=== PATIENT | female | born 1950 | race Caucasian/White ===

== ENCOUNTER 2019-07-18 06:21 | Emergency (ER) | payer OTHER ==
[2019-07-18] MEDS ORDERED: Morphine 4 MG/ML VIAL ONE (07:10)
[2019-07-18] MEDS ORDERED: Ketorolac Tromethamine 30 MG/ML VIAL ONE (07:10)
[2019-07-18] MEDS ORDERED: Lidocaine 1% 20 ML MDV ONE (07:31)
[2019-07-18] MEDS ORDERED: Bupivacaine 0.5% 10 ML VIAL ONE (07:31)
--- NOTE | 2019-07-18 08:09 | RAD ---
3 VIEWS LEFT HAND: Date: 07/18/19 HISTORY: Fall with left hand pain. FINDINGS: 3 views of the left hand show a fracture of the proximal aspect of the proximal phalanx of the small finger. The fracture does not definitely extend to the metacarpophalangeal joint. No other fractures are seen. No degenerative changes are present. IMPRESSION: Proximal phalanx fracture of the small finger. POS: CET
--- NOTE | 2019-07-18 08:10 | RAD ---
4 VIEWS RIGHT KNEE: Date: 07/18/19 HISTORY: Fall with knee pain. FINDINGS: 4 views of the right knee show no evidence of acute fracture or dislocation. No degenerative changes are seen. No knee effusion is seen. IMPRESSION: Unremarkable exam. POS: CET
--- NOTE | 2019-07-18 08:11 | RAD ---
FOUR VIEWS OF THE LEFT KNEE: COMPARISON: None. HISTORY: Fall with knee pain. FINDINGS: Four views of the left knee show no evidence of acute fracture or dislocation. No degenerative lange es are seen. Mild prepatellar soft tissue swelling is seen. IMPRESSION: No evidence of acute osseous abnormality. POS: CET
[2019-07-18] MEDS ORDERED: Bacitracin 1 PK ONE (08:47)
--- NOTE | 2019-07-18 10:50 | RAD ---
THREE VIEWS LEFT HAND: COMPARISON: 07/18/2019. HISTORY: Post reduction of a small finger fracture. FINDINGS: Three views of the left hand show reduction of the previously seen fracture of the proximal phalanx o f the small finger. Mild soft tissue swelling is seen. The fracture is difficult to visualize as an overlying splint obscure fine bony and soft tissue detail. IMPRESSION: Reduction of the proximal phalanx fracture. POS: CET
== END 2019-07-18 09:26 | disposition home or self-care (01) ==
LOC: SCSER 06:21
DX: S62.617A Displaced fracture of proximal phalanx of left little finger, initial encounter for closed fracture (principal); S80.212A Abrasion, left knee, initial encounter; S80.211A Abrasion, right knee, initial encounter; I10 Essential (primary) hypertension; Z79.899 Other long term (current) drug therapy; W18.30XA Fall on same level, unspecified, initial encounter
CPT/HCPCS: 26725; 96374; 96375; J1885; J2001; J2270; J3490